=== PATIENT | male | born 1935 | race Caucasian/White ===

== ENCOUNTER 2017-07-06 12:16 | Emergency (ER) | payer MEDICARE, OTHER ==
[~2017-07-06] VITALS: Ht 167.6 cm; Wt 54.5 kg
[~2017-07-06 12:16] MED LIST: AMLO-511 PO; ASPI-556 PO; CLOP75 PO; PANT40SU PO
[2017-07-06] MEDS ORDERED: ATEN25TA PO (12:22)
[2017-07-06] MEDS ORDERED: METF500T4 PO (12:22)
[2017-07-06 12:33] LABS: GLUCOSE,POINT OF CARE 156 MG/DL (70-110)
[2017-07-06 13:00] VITALS: BP 164/78
[2017-07-06] MEDS ORDERED: BACITRACIN 0.9 GM PACKET OINTMENT TP ONE (13:00)
== END 2017-07-06 13:41 | disposition home or self-care (01) ==
LOC: EMS 12:17
DX: S30.0XXA Contusion of lower back and pelvis, initial encounter (principal); I10 Essential (primary) hypertension; E11.9 Type 2 diabetes mellitus without complications; E78.00 Pure hypercholesterolemia, unspecified; Z79.82 Long term (current) use of aspirin; Z95.1 Presence of aortocoronary bypass graft; X58.XXXA Exposure to other specified factors, initial encounter; Y93.89 Activity, other specified; Y92.89 Other specified places as the place of occurrence of the external cause; Y99.8 Other external cause status
CPT/HCPCS: 82962; 99283

== ENCOUNTER 2017-08-31 07:28 | Emergency (ER) | payer MEDICARE, OTHER ==
[~2017-08-31] VITALS: Ht 167.6 cm; Wt 54.5 kg
[~2017-08-31 07:28] MED LIST changes: -AMLO-511 PO; +ATEN25TA PO; +METF500T4 PO; -PANT40SU PO
[2017-08-31] MEDS ORDERED: LORA0.5T2 PO (07:34)
[2017-08-31 07:37] LABS: GLUCOSE,POINT OF CARE 130 MG/DL (70-110)
[2017-08-31] MEDS ORDERED: HydrOXYzine PAMOATE 50 MG CAPSULE PO ONE (08:00)
[2017-08-31 08:36] VITALS: BP 141/68
== END 2017-08-31 08:49 | disposition home or self-care (01) ==
LOC: EMS 07:31
DX: F41.9 Anxiety disorder, unspecified (principal); R19.7 Diarrhea, unspecified; R11.0 Nausea; I25.10 Atherosclerotic heart disease of native coronary artery without angina pectoris; E11.9 Type 2 diabetes mellitus without complications; E78.00 Pure hypercholesterolemia, unspecified; I10 Essential (primary) hypertension; Z95.1 Presence of aortocoronary bypass graft; Z79.82 Long term (current) use of aspirin
CPT/HCPCS: 82962; 99284

== ENCOUNTER 2017-09-13 09:40 | Inpatient (IN) | payer MEDICARE, OTHER ==
[~2017-09-13] VITALS: Ht 152.4 cm; Wt 54.5 kg
[~2017-09-13 09:40] MED LIST changes: +LORA0.5T2 PO
[2017-09-13] MEDS ORDERED: ENAL20 PO (09:54)
[2017-09-13 10:03] LABS: GLUCOSE,POINT OF CARE 158 MG/DL (70-110)
[2017-09-13 11:11] LABS: BILIRUBIN,URINE NEGATIVE (NEGATIVE); GLUCOSE, URINE (UA) 100 mg/dL (NEGATIVE); KETONES,URINE TRACE mg/dL (NEGATIVE); LEUKOCYTE ESTERASE ,URINE NEGATIVE (NEGATIVE); NITRATE,URINE NEGATIVE (NEGATIVE); OCCULT BLOOD,URINE TRACE (NEGATIVE); PROTEIN,URINE POS 1+ (NEGATIVE)
[2017-09-13 11:23] LABS: APPEARANCE,URINE HAZY (CLEAR); BACTERIA,URINE None Seen /HPF (None Seen); RBC,URINE 0-2 /HPF (0-2); WBC,URINE None Seen /HPF (0-5)
[2017-09-13 11:34] LABS: BASOPHILS # (AUTO) 0.03 K/uL (0.00-0.20); BASOPHILS % (AUTO) 0.3 % (0.0-2.0); EOSINOPHILS % (AUTO) 0.03 % (1.0-6.0); HEMATOCRIT 47.6 % (41-53); HEMOGLOBIN 15.7 g/dL (13.5-17.5); LYMPHOCYTES # (AUTO) 0.4 K/uL (1.0-4.8); LYMPHOCYTES % (AUTO) 4.3 % (22.0-44.0); MEAN CORPUSCULAR HEMOGLOBIN 31.2 pg (26.0-34.0); MEAN CORPUSCULAR HGB CONC 32.9 G/dL (31.0-37.0); MEAN CORPUSCULAR VOLUME 95 fL (80-100); MONOCYTES # (AUTO) 0.6 K/uL (0.1-1.0); MONOCYTES % (AUTO) 5.3 % (2.0-9.0); NEUTROPHILS # (AUTO) 9.3 K/uL (1.8-7.7); PLATELET COUNT (AUTO) 204 K/uL (150-450); RED BLOOD CELL COUNT(AUTO) 5.02 MIL/uL (4.50-5.90); RED CELL DISTRIBUTION WIDTH 14.7 % (11.5-14.5)
[2017-09-13 11:35] LABS: NEUTROPHILS % (AUTO) 90.2 % (40.0-70.0)
[2017-09-13 11:45] LABS: ANION GAP 11 mmol/L (8-16); CALCIUM, TOTAL 9.4 mg/dL (8.8-10.5); CARBON DIOXIDE 27 mmol/L (22-29); CHLORIDE 97 mmol/L (98-107); CREATININE 0.82 mg/dL (0.60-1.30); GLOMERULAR FILTR. RATE CALC > 60 mL/min (>60); GLUCOSE,RANDOM 134 mg/dL (70-110); SODIUM SERUM 135 mmol/L (136-145); UREA NITROGEN, BLOOD 9 mg/dL (7-18)
[2017-09-13] MEDS ORDERED: NITROGLYCERIN 0.4 MG SUBLINGUAL TABLET #25 SL ONE (11:45)
[2017-09-13] MEDS ORDERED: ASPIRIN 325 MG TABLET PO ONE (11:45)
[2017-09-13 11:49] LABS: PROTHROMBIN TIME 10.7 SEC (9.4-11.6)
[2017-09-13 11:52] LABS: ALBUMIN 4.1 g/dL (3.4-5.0); ALKALINE PHOSPHATASE 88 U/L (46-116); ASPARTATE AMINOTRANSFERASE 22 U/L (15-37); BILIRUBIN,TOTAL 0.7 mg/dL (0.1-1.0); CREATINE KINASE, TOTAL 41 U/L (39-308); TOTAL PROTEIN, SERUM 8.8 g/dL (6.4-8.2)
[2017-09-13 12:05] LABS: B-TYPE NATRIURETIC PEPTIDE 65 pg/mL (0-100)
[2017-09-13 12:09] LABS: ALANINE AMINOTRANSFERASE 18 U/L (12-78)
[2017-09-13] MEDS ORDERED: HYDROCODONE/ACETAMINOPHEN 5-325 MG TABLET PO PRN (13:30)
[2017-09-13] MEDS ORDERED: ZOLPIDEM TARTRATE 10 MG TABLET PO PRN (13:30)
[2017-09-13] MEDS ORDERED: INSULIN ASPART 100 UNITS/ML SQ PRN (13:30)
[2017-09-13] MEDS ORDERED: MAGNESIUM HYDROXIDE SUSPENSION 30 ML UDCUP PO PRN (13:30)
[2017-09-13] MEDS ORDERED: ONDANSETRON HCL 4 MG/2 ML VIAL IVP PRN (13:30)
[2017-09-13] MEDS ORDERED: ALBUTEROL SULFATE 2.5 MG/0.5 ML NEB SOLUTION NEB PRN (13:30)
[2017-09-13] MEDS ORDERED: IPRATROPIUM BROMIDE 0.5 MG/2.5 ML NEB SOLUTION NEB PRN (13:30)
[2017-09-13] MEDS ORDERED: ACETAMINOPHEN 325 MG TABLET PO PRN (13:30)
[2017-09-13] MEDS ORDERED: MORPHINE SULFATE 2 MG/ML SYRINGE IVP PRN (13:30)
[2017-09-13] MEDS ORDERED: DEXTROSE 50%-WATER 25 GM/50 ML SYRINGE IVP PRN (13:30)
[2017-09-13] MEDS: ATENOLOL 50 MG TABLET PO SCH (14:51)
[2017-09-13] MEDS: ATORVASTATIN CALCIUM 20 MG TABLET PO SCH (15:22)
[2017-09-13 15:37] VITALS: BP 157/82
[2017-09-13 15:53] LABS: GLUCOSE,POINT OF CARE 104 MG/DL (70-110)
[2017-09-13 17:39] VITALS: BP 172/73
[2017-09-13 17:43] LABS: GLUCOSE,POINT OF CARE 118 MG/DL (70-110)
[2017-09-13] MEDS: NITROGLYCERIN 2% (1 GM=INCH) PACKET TP SCH (17:52)
[2017-09-13] MEDS ORDERED: LORazepam 0.5 MG TABLET PO SCH ×2 (18:00→21:00)
[2017-09-13] MEDS: LORazepam 0.5 MG TABLET PO SCH (18:19)
[2017-09-13 18:40] VITALS: BP 139/68
[2017-09-13] MEDS: DOCUSATE SODIUM 100 MG CAPSULE PO SCH (20:44)
[2017-09-13] MEDS: ENALAPRIL MALEATE 5 MG TABLET PO SCH (20:47)
[2017-09-13 21:00] VITALS: BP 117/70
[2017-09-13] MEDS ORDERED: ENALAPRIL MALEATE 20 MG TABLET PO SCH (21:00)
[2017-09-14] MEDS: NITROGLYCERIN 2% (1 GM=INCH) PACKET TP SCH ×2 (00:12→06:29)
[2017-09-14 00:13] VITALS: BP 143/69
[2017-09-14 04:09] VITALS: BP 119/72
[2017-09-14 05:40] LABS: CHOL/HDL RATIO 2.2 (4.2-7.3)
[2017-09-14 06:34] VITALS: BP 140/84
[2017-09-14 07:03] LABS: GLUCOSE,POINT OF CARE 90 MG/DL (70-110)
[2017-09-14 07:03] LABS: GLUCOSE,POINT OF CARE 181 MG/DL (70-110)
[2017-09-14 08:02] LABS: GLUCOSE,POINT OF CARE 99 MG/DL (70-110)
[2017-09-14] MEDS ORDERED: PANTOPRAZOLE SODIUM 40 MG/VIAL IVP SCH (09:00)
[2017-09-14] MEDS ORDERED: CLOPIDOGREL BISULFATE 75 MG TABLET PO SCH (09:00)
[2017-09-14] MEDS ORDERED: ASPIRIN 81 MG EC TABLET PO SCH (09:00)
[2017-09-14] MEDS ORDERED: ASPIRIN 81 MG CHEWABLE TABLET PO SCH ×2 (09:00)
[2017-09-14] MEDS: DOCUSATE SODIUM 100 MG CAPSULE PO SCH (09:00)
[2017-09-14 09:43] VITALS: BP 148/76
[2017-09-14] MEDS: ATENOLOL 50 MG TABLET PO SCH (09:50)
[2017-09-14] MEDS: LORazepam 0.5 MG TABLET PO SCH (09:51)
[2017-09-14] MEDS: ATORVASTATIN CALCIUM 20 MG TABLET PO SCH (09:51)
[2017-09-14] MEDS: ENALAPRIL MALEATE 5 MG TABLET PO SCH (09:56)
[2017-09-14 10:13] VITALS: BP 148/84
[2017-09-14] MEDS ORDERED: ATEN25TA PO (11:14)
[2017-09-14] MEDS ORDERED: ATOR20TA86 PO (11:15)
[2017-09-14] MEDS ORDERED: ENAL5 PO (11:16)
== END 2017-09-14 11:45 | disposition home or self-care (01) | DRG 303 ==
LOC: EMS 09:42 → AHU 15:15
PROVIDERS: ADMIT Internal Medicine; ATTEND Internal Medicine
DX: I25.110 Atherosclerotic heart disease of native coronary artery with unstable angina pectoris (principal); J44.9 Chronic obstructive pulmonary disease, unspecified; E11.9 Type 2 diabetes mellitus without complications; E78.00 Pure hypercholesterolemia, unspecified; E78.5 Hyperlipidemia, unspecified; F41.9 Anxiety disorder, unspecified; I10 Essential (primary) hypertension; Z79.84 Long term (current) use of oral hypoglycemic drugs; Z95.1 Presence of aortocoronary bypass graft; Z79.899 Other long term (current) drug therapy; Z79.82 Long term (current) use of aspirin
CPT/HCPCS: 82962; 93005; 93306; 99285; C9113

== ENCOUNTER 2018-03-21 13:05 | Emergency (ER) | payer MEDICARE, OTHER ==
[~2018-03-21] VITALS: Ht 167.6 cm; Wt 56.8 kg
[~2018-03-21 13:05] MED LIST changes: +ATOR20TA86 PO; +ENAL5 PO; -METF500T4 PO; +METF500T6 PO
[2018-03-21] MEDS ORDERED: HYD50 PO (13:17)
[2018-03-21] MEDS ORDERED: TRAM50TA4 PO (13:17)
[2018-03-21] MEDS ORDERED: ZOLP5TAB8 PO (13:17)
[2018-03-21 14:32] LABS: BASOPHILS % (AUTO) 0.3 % (0.0-2.0); EOSINOPHILS % (AUTO) 0.8 % (1.0-6.0); HEMATOCRIT 40.5 % (41-53); LYMPHOCYTES # (AUTO) 0.8 K/uL (1.0-4.8); LYMPHOCYTES % (AUTO) 8.4 % (22.0-44.0); MEAN CORPUSCULAR HEMOGLOBIN 31.9 pg (26.0-34.0); MEAN CORPUSCULAR HGB CONC 34.5 G/dL (31.0-37.0); MEAN CORPUSCULAR VOLUME 92 fL (80-100); MONOCYTES # (AUTO) 0.9 K/uL (0.1-1.0); MONOCYTES % (AUTO) 8.9 % (2.0-9.0); NEUTROPHILS # (AUTO) 7.9 K/uL (1.8-7.7); NEUTROPHILS % (AUTO) 81.6 % (40.0-70.0); PLATELET COUNT (AUTO) 259 K/uL (150-450); RED BLOOD CELL COUNT(AUTO) 4.39 MIL/uL (4.50-5.90)
[2018-03-21 14:42] LABS: ANION GAP 4 mmol/L (8-16); CALCIUM, TOTAL 8.9 mg/dL (8.8-10.5); CARBON DIOXIDE 29 mmol/L (22-29); CHLORIDE 98 mmol/L (98-107); CREATININE 0.78 mg/dL (0.60-1.30); GLOMERULAR FILTR. RATE CALC > 60 mL/min (>60); GLUCOSE,RANDOM 126 mg/dL (70-110); POTASSIUM 4.6 mmol/L (3.5-5.1); SODIUM SERUM 131 mmol/L (136-145); UREA NITROGEN, BLOOD 16 mg/dL (7-18)
[2018-03-21 14:48] LABS: ALANINE AMINOTRANSFERASE 27 U/L (12-78); ALBUMIN 3.6 g/dL (3.4-5.0); ALKALINE PHOSPHATASE 71 U/L (46-116); ASPARTATE AMINOTRANSFERASE 23 U/L (15-37); BILIRUBIN,TOTAL 0.4 mg/dL (0.1-1.0); CREATINE KINASE, TOTAL 58 U/L (39-308); TOTAL PROTEIN, SERUM 7.6 g/dL (6.4-8.2)
[2018-03-21 14:56] LABS: B-TYPE NATRIURETIC PEPTIDE 40 pg/mL (0-100)
[2018-03-21] MEDS ORDERED: SODIUM CHLORIDE 0.9% 1,000 ML IV ONE (15:00)
[2018-03-21 15:25] LABS: INR 0.9 (0.9-1.1); PROTHROMBIN TIME 9.9 SEC (9.4-11.6)
[2018-03-21 15:37] LABS: AMPHET/METH SCREEN,URINE NEGATIVE (NEGATIVE); BARBITURATE SCREEN, URINE NEGATIVE (NEGATIVE); BENZODIAZEPINES SCREEN,URINE NEGATIVE (NEGATIVE); CANNABINOID SCREEN,URINE NEGATIVE (NEGATIVE); COCAINE SCREEN,URINE NEGATIVE (NEGATIVE); METHADONE SCREEN, URINE NEGATIVE (NEGATIVE); OPIATE SCREEN,URINE NEGATIVE (NEGATIVE)
[2018-03-21 15:42] LABS: PHENCYCLIDINE SCREEN,URINE NEGATIVE (NEGATIVE)
[2018-03-21 15:53] LABS: APPEARANCE,URINE CLEAR (CLEAR); BILIRUBIN,URINE NEGATIVE (NEGATIVE); GLUCOSE, URINE (UA) NEGATIVE (NEGATIVE); KETONES,URINE NEGATIVE (NEGATIVE); LEUKOCYTE ESTERASE ,URINE NEGATIVE (NEGATIVE); NITRATE,URINE NEGATIVE (NEGATIVE); OCCULT BLOOD,URINE NEGATIVE (NEGATIVE); PH,URINE 6.5 (5.0-8.0); PROTEIN,URINE TRACE (NEGATIVE); UROBILINOGEN,URINE 0.2 mg/dL (<=1.0)
[2018-03-21 17:02] VITALS: BP 156/86
== END 2018-03-21 17:29 | disposition home or self-care (01) ==
LOC: EMS 13:06
DX: R55 Syncope and collapse (principal); R00.1 Bradycardia, unspecified; I25.10 Atherosclerotic heart disease of native coronary artery without angina pectoris; E11.9 Type 2 diabetes mellitus without complications; E78.00 Pure hypercholesterolemia, unspecified; I10 Essential (primary) hypertension; Z95.1 Presence of aortocoronary bypass graft
CPT/HCPCS: 36415; 71045; 80053; 80307; 81003; 82550; 83880; 84484; 85025; 85610; 85730; 93005; 99285; G0480; J7030

== ENCOUNTER 2018-11-08 12:39 | Emergency (ER) | payer MEDICARE, OTHER ==
[~2018-11-08] VITALS: Ht 167.6 cm; Wt 61.4 kg
[~2018-11-08 12:39] MED LIST changes: -CLOP75 PO; +CLOP75TA17 PO; +HYD50 PO; +METF-960 PO; -METF500T6 PO; +TRAM50TA4 PO; +ZOLP5TAB8 PO
[2018-11-08 12:58] LABS: GLUCOSE,POINT OF CARE 150 MG/DL (70-110)
[2018-11-08 14:33] VITALS: BP 141/82
== END 2018-11-08 14:53 | disposition home or self-care (01) ==
LOC: EMS 12:43
DX: S31.000A Unspecified open wound of lower back and pelvis without penetration into retroperitoneum, initial encounter (principal); E11.9 Type 2 diabetes mellitus without complications; E78.00 Pure hypercholesterolemia, unspecified; I25.10 Atherosclerotic heart disease of native coronary artery without angina pectoris; I10 Essential (primary) hypertension; F41.9 Anxiety disorder, unspecified; Z79.899 Other long term (current) drug therapy; Z95.1 Presence of aortocoronary bypass graft; X58.XXXA Exposure to other specified factors, initial encounter; Y93.89 Activity, other specified; Y92.89 Other specified places as the place of occurrence of the external cause; Y99.8 Other external cause status

== ENCOUNTER 2020-08-18 14:23 | Emergency (ER) | payer MEDICARE, OTHER ==
[~2020-08-18] VITALS: Ht 165.1 cm; Wt 60.0 kg
[~2020-08-18 14:23] MED LIST changes: +ATEN-73 PO; -ATEN25TA PO; +CLOP-31 PO; -CLOP75TA17 PO; -ENAL5 PO; +ENAL5TAB17 PO; +LORA-999 PO; -LORA0.5T2 PO
[2020-08-18 15:25] LABS: BASOPHILS % (AUTO) 0.3 % (0.0-2.0); EOSINOPHILS % (AUTO) 0.4 % (1.0-6.0); HEMATOCRIT 39.3 % (41-53); HEMOGLOBIN 13.6 g/dL (13.5-17.5); LYMPHOCYTES # (AUTO) 0.8 K/uL (1.0-4.8); LYMPHOCYTES % (AUTO) 7.4 % (22.0-44.0); MEAN CORPUSCULAR HEMOGLOBIN 31.6 pg (26.0-34.0); MEAN CORPUSCULAR HGB CONC 34.5 G/dL (31.0-37.0); MEAN CORPUSCULAR VOLUME 92 fL (80-100); MONOCYTES # (AUTO) 0.5 K/uL (0.1-1.0); MONOCYTES % (AUTO) 4.7 % (2.0-9.0); PLATELET COUNT (AUTO) 213 K/uL (150-450); RED BLOOD CELL COUNT(AUTO) 4.29 MIL/uL (4.50-5.90); RED CELL DISTRIBUTION WIDTH 13.1 % (11.5-14.5)
[2020-08-18 15:27] LABS: NEUTROPHILS % (AUTO) 87.2 % (40.0-70.0)
[2020-08-18 15:33] LABS: ANION GAP 9 mmol/L (8-16); CALCIUM, TOTAL 8.5 mg/dL (8.8-10.5); CARBON DIOXIDE 23 mmol/L (22-29); CHLORIDE 102 mmol/L (98-107); GLUCOSE,RANDOM 142 mg/dL (70-110); SODIUM SERUM 134 mmol/L (136-145); UREA NITROGEN, BLOOD 16 mg/dL (7-18)
[2020-08-18 15:34] LABS: GLOMERULAR FILTR. RATE CALC > 60 mL/min (>60)
[2020-08-18 17:00] VITALS: BP 151/57
== END 2020-08-18 17:45 | disposition home or self-care (01) ==
LOC: EMS 14:26
DX: R55 Syncope and collapse (principal); R42 Dizziness and giddiness; R00.2 Palpitations; I25.10 Atherosclerotic heart disease of native coronary artery without angina pectoris; I10 Essential (primary) hypertension; F41.9 Anxiety disorder, unspecified; E11.9 Type 2 diabetes mellitus without complications; E78.00 Pure hypercholesterolemia, unspecified; Z79.82 Long term (current) use of aspirin; Z79.899 Other long term (current) drug therapy
CPT/HCPCS: 93005

== ENCOUNTER 2020-10-01 10:50 | Emergency (ER) | payer MEDICARE, OTHER ==
[~2020-10-01] VITALS: Ht 162.6 cm; Wt 63.6 kg
[~2020-10-01 10:50] MED LIST changes: -CLOP-31 PO; +CLOP75TA60 PO
[2020-10-01 12:02] VITALS: BP 132/68
== END 2020-10-01 12:03 | disposition home or self-care (01) ==
LOC: EMS 10:52
DX: L03.031 Cellulitis of right toe (principal)
CPT/HCPCS: 99283; Z7502

== ENCOUNTER 2020-10-12 16:35 | Emergency (ER) | payer MEDICARE, OTHER ==
[~2020-10-12] VITALS: Ht 165.1 cm; Wt 59.1 kg
[2020-10-12 18:27] VITALS: BP 159/93
== END 2020-10-12 18:55 | disposition home or self-care (01) ==
LOC: EMS 16:35
DX: L03.031 Cellulitis of right toe (principal); E78.00 Pure hypercholesterolemia, unspecified; I10 Essential (primary) hypertension; E11.9 Type 2 diabetes mellitus without complications; F41.9 Anxiety disorder, unspecified

== ENCOUNTER 2020-10-25 11:10 | Emergency (ER) | payer MEDICARE, OTHER ==
[~2020-10-25] VITALS: Ht 167.6 cm; Wt 61.4 kg
[2020-10-25 11:12] VITALS: BP 112/86
[2020-10-25 11:39] LABS: GLUCOSE,POINT OF CARE 145 MG/DL (70-110)
== END 2020-10-25 12:26 | disposition home or self-care (01) ==
LOC: EMS 12:26
DX: M79.674 Pain in right toe(s) (principal); F41.9 Anxiety disorder, unspecified; I25.10 Atherosclerotic heart disease of native coronary artery without angina pectoris; E11.9 Type 2 diabetes mellitus without complications; I10 Essential (primary) hypertension; Z79.84 Long term (current) use of oral hypoglycemic drugs; Z79.82 Long term (current) use of aspirin
CPT/HCPCS: 99282

== ENCOUNTER 2022-03-01 11:03 | Emergency (ER) | payer MEDICARE, OTHER ==
[~2022-03-01] VITALS: Ht 167.6 cm; Wt 61.4 kg
[~2022-03-01 11:03] MED LIST changes: -HYD50 PO; +HYDR-4584 PO; +METF-1211 PO; -METF-960 PO
[2022-03-01] MEDS ORDERED: TraMADol HCL 50 MG TABLET PO ONE (13:30)
[2022-03-01 13:39] LABS: BASOPHILS % (AUTO) 0.4 % (0.0-2.0); EOSINOPHILS % (AUTO) 2.1 % (1.0-6.0); HEMATOCRIT 39.4 % (41-53); HEMOGLOBIN 13.5 g/dL (13.5-17.5); LYMPHOCYTES # (AUTO) 1.5 K/uL (1.0-4.8); LYMPHOCYTES % (AUTO) 17.3 % (22.0-44.0); MEAN CORPUSCULAR HEMOGLOBIN 32.2 pg (26.0-34.0); MEAN CORPUSCULAR HGB CONC 34.2 G/dL (31.0-37.0); MEAN CORPUSCULAR VOLUME 94 fL (80-100); MONOCYTES # (AUTO) 0.8 K/uL (0.1-1.0); NEUTROPHILS # (AUTO) 5.9 K/uL (1.8-7.7); NEUTROPHILS % (AUTO) 70.2 % (40.0-70.0); PLATELET COUNT (AUTO) 248 K/uL (150-450); RED BLOOD CELL COUNT(AUTO) 4.18 MIL/uL (4.50-5.90); RED CELL DISTRIBUTION WIDTH 17.1 % (11.5-14.5)
[2022-03-01 13:48] LABS: ANION GAP 7 mmol/L (8-16); CALCIUM, TOTAL 9.2 mg/dL (8.8-10.5); CARBON DIOXIDE 26 mmol/L (22-29); CHLORIDE 101 mmol/L (98-107); GLOMERULAR FILTR. RATE CALC > 60 mL/min (>60); GLUCOSE,RANDOM 106 mg/dL (70-110); POTASSIUM 4.4 mmol/L (3.5-5.1); SODIUM SERUM 134 mmol/L (136-145); UREA NITROGEN, BLOOD 16 mg/dL (7-18)
[2022-03-01 13:54] LABS: ALANINE AMINOTRANSFERASE 18 U/L (12-78); ALBUMIN 3.5 g/dL (3.4-5.0); ALKALINE PHOSPHATASE 106 U/L (46-116); ASPARTATE AMINOTRANSFERASE 21 U/L (15-37); BILIRUBIN,TOTAL 0.8 mg/dL (0.1-1.0); TOTAL PROTEIN, SERUM 7.7 g/dL (6.4-8.2)
[2022-03-01 16:11] VITALS: BP 146/54
[2022-03-01] MEDS ORDERED: TRAM50TA4 PO (16:12)
== END 2022-03-01 16:42 | disposition home or self-care (01) ==
LOC: EMS 11:05
DX: S22.42XA Multiple fractures of ribs, left side, initial encounter for closed fracture (principal); F41.9 Anxiety disorder, unspecified; I25.10 Atherosclerotic heart disease of native coronary artery without angina pectoris; E11.9 Type 2 diabetes mellitus without complications; E78.00 Pure hypercholesterolemia, unspecified; I10 Essential (primary) hypertension; M10.9 Gout, unspecified; Z95.1 Presence of aortocoronary bypass graft; Z98.890 Other specified postprocedural states; W19.XXXA Unspecified fall, initial encounter; Y93.89 Activity, other specified; Y92.096 Garden or yard of other non-institutional residence as the place of occurrence of the external cause; Y99.8 Other external cause status
CPT/HCPCS: 71045; 71250; 80053; 82962; 84484; 85025; 93005; 99284; 36415-L1; 36415-TC